=== PATIENT | female | born 1970 | race Hispanic/Latino ===

== ENCOUNTER 2016-12-20 22:02 | Inpatient (IN) | payer MEDICAID ==
[2016-12-20] MEDS ORDERED: Ammonia 2% Inhalant ONE (22:32)
[2016-12-20] MEDS ORDERED: Naloxone 0.4 mg/ml Inj (Adult) IVP STA (22:38)
[2016-12-20] MEDS ORDERED: Sodium Chloride 0.9% 1,000 ML IV STA (22:39)
[2016-12-20] MEDS ORDERED: Naloxone 0.4 mg/ml Inj (Adult) ONE (22:47)
--- NOTE | 2016-12-20 22:49 | ED PDOC ---
HPI: Altered Mental Status Time Seen by Provider: 12/20/16 22:30 Chief Complaint (Nursing): Altered Mental Status Chief Complaint (Provider): Drug abuse History Per: EMS Additional Complaint(s): Patient is a 46 year old female brought to the emergency department by EMS who reports that she was found unresponsive in her bedroom by her friends. States that she returned home from a constitution party, said she was tired and went to bed. Friends discovered her in her room unable to wake up. History limited because patient is under the influence. Past Medical History Reviewed: Nursing Documentation, Vital Signs, Unable To Obtain Vital Signs: Last Vital Signs Temp 97.6 F 12/20/16 22:05 Pulse 94 H 12/20/16 22:05 Resp 16 12/20/16 22:05 BP 110/65 12/20/16 22:05 Pulse Ox 92 L 12/20/16 22:05 - Medical History PMH: HTN (lifestyle modifications) - Surgical History Surgical History: Appendectomy - Family History Family History: States: Unknown Family Hx - Home Medications Home Medications: Ambulatory Orders Medication Instructions Recorded Alprazolam [Xanax] 0.5 mg PO DAILY PRN 12/25/15 Citalopram Hydrobromide [Celexa] 40 mg PO DAILY 12/25/15 buPROPion [Wellbutrin] 75 mg PO TID 12/25/15 Cephalexin [Keflex] 500 mg PO BID #0 capsule 12/27/15 oxyCODONE/Acetaminophen [Percocet 1 tab PO Q4 PRN #0 tab 12/27/15 5/325 mg Tab] Cephalexin [cephalexin] 500 mg PO TID #15 cap 01/08/16 - Allergies Allergies/Adverse Reactions: Allergies Allergy/AdvReac Type Severity Reaction Status Date / Time No Known Allergies Allergy Verified 01/08/16 16:17 Review of Systems Review Of Systems: ROS cannot be obtained secondary to pt's inabilty to answer questions. Physical Exam - Reviewed Nursing Documentation Reviewed: Yes Vital Signs Reviewed: Yes - Physical Exam Appears: Positive for: No Acute Distress (somnolent, snoring, arousable to deep sternal rub) Head Exam: Positive for: ATRAUMATIC, NORMAL INSPECTION, NORMOCEPHALIC Skin: Positive for: Normal Color, Warm, Dry Eye Exam: Positive for: Normal appearance, PERRL Neck: Positive for: Normal, Painless ROM, Supple Cardiovascular/Chest: Positive for: Regular Rate, Rhythm. Negative for: Murmur Respiratory: Positive for: Normal Breath Sounds. Negative for: Accessory Muscle Use, Respiratory Distress Gastrointestinal/Abdominal: Positive for: Normal Exam, Soft. Negative for: Tenderness Extremity: Positive for: Normal ROM. Negative for: Pedal Edema Neurologic/Psych: Positive for: Alert - Laboratory Results Result Diagrams: 12/20/16 22:43 12/20/16 22:43 - ECG O2 Sat by Pulse Oximetry: 92 (RA) Pulse Ox Interpretation: Normal Medical Decision Making Medical Decision Making: Time: 22:38 Initial impression: Drug abuse Initial plan: EKG Labs ED Urine Dipstick Chest X-Ray Narcan 0.4 mg IVP Normal Saline 1 L, 500 mls/hr ED Observation Reevaluation Scribe Attestation: Documented by Chrissy Sheets, acting as a scribe for Mathieu Pardo MD. Provider Scribe Attestation: All medical record entries made by the Scribe were at my direction and personally dictated by me. I have reviewed the chart and agree that the record accurately reflects my personal performance of the history, physical exam, medical decision making, and the department course for this patient. I have also personally directed, reviewed, and agree with the discharge instructions and disposition. ED OBSERVATION Date of observation admission: 12/20/16 Time of observation admission: 22:39 - Observation admission statement Patient is being placed in observation because:: of pending Chest X-Ray and EKG. - Goals of Observation Goals of observation are:: Resolution of symptoms. - Progress Note Progress Note: 12/20/16 22:39 Patient is asleep in ED. 12/21/16 00:12 Patient is asleep in ED. 12/21/16 01:43 Patient is asleep in ED. 12/21/16 03:10 Patient is asleep in ED. 12/21/16 03:30 Patient is waking up but is still difficulty to arouse. 12/21/16 03:46 Patient was able to express that she nearly had an entire bottle of Xanax in order to harm herself. Poison Control was contacted, and recommended Supportive Care. Ordered crisis evaluation. 12/21/16 05:10 Patient is waking up, difficulty to arouse. 12/21/16 07:00 Patient will be signed out to Dr. Fiona Alcala pending sobriety and crisis evaluation. Disposition - Clinical Impression Clinical Impression: Benzodiazepine overdose - Disposition Disposition: Transfer of Care Disposition Time: 07:00 Condition: FAIR Patient Signed Over To: Fiona Alcala Handoff Comments: pending sobriety, crisis eval
[2016-12-20 23:01] LABS: BASO # 0.1 K/uL (0.0-0.2); BASO % 0.6 % (0.0-2.0); EOS # 0.1 K/uL (0.0-0.7); EOS % 1.5 % (0.0-4.0); HEMATOCRIT 37.1 % (34.0-47.0); LYMPH # 2.1 K/uL (1.0-4.3); LYMPH % 25.6 % (20.0-40.0); MEAN CELL VOLUME 85.5 fl (81.0-99.0); MEAN CORPUSCULAR HEMOGLOBIN 26.9 pg (27.0-31.0); MEAN CORPUSCULAR HGB CONC 31.5 g/dL (33.0-37.0); MONO # 0.7 K/uL (0.0-0.8); MONO % 9.2 % (0.0-10.0); NEUT # 5.1 K/uL (1.8-7.0); NEUT % 63.1 % (50.0-75.0); RED CELL DISTRIBUTION WIDTH 19.9 % (11.5-14.5); WHITE BLOOD COUNT 8.1 K/uL (4.8-10.8)
[2016-12-20 23:02] LABS: ALCOHOL SERUM 105 mg/dl (0-10); BLOOD UREA NITROGEN 11 mg/dl (7-17); CALCIUM 8.5 mg/dL (8.4-10.2); CARBON DIOXIDE 22 mmol/L (22-30); CHLORIDE 106 mmol/L (98-107); GFR AFRICAN-AMERICAN > 60; GLUCOSE,RANDOM 94 mg/dL (65-105); POTASSIUM 4.2 MMOL/L (3.6-5.0); SODIUM 137 mmol/l (132-148)
--- NOTE | 2016-12-21 01:28 | CT ---
EXAM: CT Head Without Intravenous Contrast CLINICAL HISTORY: 46 years old, female; Signs and symptoms; Alteration of consciousness; Stupor; Patient HX: AMS. Possible overdose TECHNIQUE: Axial computed tomography images of the head/brain without intravenous contrast. All CT scans at this facility use one or more dose reduction techniques, viz.: automated exposure control; ma/kV adjustment per patient size (including targeted exams where dose is matched to indication; i.e. head); or iterative reconstruction technique. Coronal and sagittal reformatted images were created and reviewed. COMPARISON: No relevant prior studies available. FINDINGS: Limitations: Streak artifact - mild. Brain: No intracranial hemorrhage. No mass. Dilated perivascular space vs chronic lacunar infarct about RIGHT basal ganglia. No definite edema. Ventricles: No hydrocephalus. Bones/joints: No acute fracture. Soft tissues: Unremarkable. Sinuses: Mild mucosal mucosal thickening of ethmoid, RIGHT maxillary sinuses. Mastoid air cells: No mastoid effusion. Orbits: Unremarkable as visualized. IMPRESSION: 1. No definite acute intracranial abnormality. 2. Incidental/non-acute findings are described above.
--- NOTE | 2016-12-21 07:13 | ED PDOC ---
- Laboratory Results Result Diagrams: 12/22/16 07:00 12/22/16 07:00 - ECG O2 Sat by Pulse Oximetry: 92 (RA) Medical Decision Making Medical Decision Making: Receiving sign out: Patient signed out to me by Dr. Pardo at 0700 pending clinical sobriety and crisis evaluation. Scribe Attestation: Documented by Zehra Wadsworth acting as a scribe for Fiona Alcala MD. Provider Attestation: All medical record entries made by the Scribe were at my direction and personally dictated by me. I have reviewed the chart and agree that the record accurately reflects my personal performance of the history, physical exam, medical decision making, and the department course for this patient. I have also personally directed, reviewed, and agree with the discharge instructions and disposition. Disposition - Clinical Impression Clinical Impression: Benzodiazepine overdose, Depression - POA Present On Arrival: None - Disposition Disposition: Admitted as In-Patient Disposition Time: 12:01 Condition: STABLE Progress Note - Review of Symptoms Events since last encounter: Time: 1005 IV Fluids NS 1000ml/hr ordered Acetaminophen and salicylate levels ordered. Time: 1043 Salicylate and acetaminophen levels within normal limits. Patient pending clinical sobriety. Time: 1201 Patient medically cleared for admission under Dr. Cramer. Diagnosis: Depression
[2016-12-21] MEDS ORDERED: Sodium Chloride 0.9% 1,000 ML IV STA (10:06)
--- NOTE | 2016-12-21 10:12 | CARD ---
APPROVED REPORT EKG Measurement Heart [id number] <Conclusion> Sinus tachycardia Possible Left atrial enlargement Abnormal ECG
--- NOTE | 2016-12-21 11:49 | RAD ---
PROCEDURE: CHEST RADIOGRAPH, 1 VIEW HISTORY: overdose COMPARISON: None available. FINDINGS: LUNGS: Poor inspiration with low lung volumes, crowded bronchovascular markings and mild bibasilar atelectasis. The central pulmonary vasculature is also slightly congested in appearance possibly due to low lung volumes however the possibility of developing mild pulmonary edema not excluded. PLEURA: No pneumothorax or pleural fluid seen. CARDIOVASCULAR: Heart appears enlarged which may also be in part due to poor inspiration and low lung volumes. . OSSEOUS STRUCTURES: Mild dextroscoliosis centered in the lower thoracic region VISUALIZED UPPER ABDOMEN: Note made of multiple metallic clips left parasagittal upper abdomen. OTHER FINDINGS: None. IMPRESSION: Poor inspiration with low lung volumes, crowded bronchovascular markings and mild bibasilar atelectasis. The central pulmonary vasculature is also slightly congested in appearance possibly due to low lung volumes however the possibility of developing mild pulmonary edema not excluded.
[2016-12-21] MEDS ORDERED: DiphenhydrAMINE 50 mg/ml Inj IM PRN (15:31)
[2016-12-21] MEDS ORDERED: Alum-Mag Hydrox-Simethicone Susp (30 mL) PO PRN (15:35)
[2016-12-21] MEDS ORDERED: Magnesium Hydroxide Susp 30 ml UD PO PRN (15:35)
[2016-12-22 07:51] LABS: BASO % 0.5 % (0.0-2.0); EOS # 0.1 K/uL (0.0-0.7); EOS % 2.5 % (0.0-4.0); LYMPH # 1.7 K/uL (1.0-4.3); LYMPH % 35.5 % (20.0-40.0); MEAN CELL VOLUME 84.4 fl (81.0-99.0); MEAN CORPUSCULAR HEMOGLOBIN 27.5 pg (27.0-31.0); MEAN CORPUSCULAR HGB CONC 32.6 g/dL (33.0-37.0); MEAN PLATELET VOLUME 8.2 fl (7.2-11.7); MONO # 0.3 K/uL (0.0-0.8); MONO % 6.6 % (0.0-10.0); NEUT # 2.6 K/uL (1.8-7.0); NEUT % 54.9 % (50.0-75.0); NRBC % 0.1 % (0.0-0.0); WHITE BLOOD COUNT 4.8 K/uL (4.8-10.8)
--- NOTE | 2016-12-22 07:57 | CP.PCM.HP ---
History of Present Illness - History of Present Illness History of Present Illness: admitted for taking fullbottle of xanax after mother was in hospital. states was trying to kill herself. no a/v hallucination. sleepy at present. denies other compliants. Present on Admission - Present on Admission Any Indicators Present on Admission: No Review of Systems - Psychiatric Psychiatric: As Per HPI, Depression Past Patient History - Past Medical History & Family History Past Medical History?: Yes - Past Social History Smoking Status: Never Smoked - CARDIAC Hx Cardiac Disorders: No - PULMONARY Hx Respiratory Disorders: No - NEUROLOGICAL Hx Neurological Disorder: No - HEENT Hx HEENT Problems: No - MUSCULOSKELETAL/RHEUMATOLOGICAL Hx Falls: No - GASTROINTESTINAL Hx Bowel Surgery: Yes (gastric sleeve) Other/Comment: small bowel obstruction - PSYCHIATRIC Hx Substance Use: No - SURGICAL HISTORY Hx Appendectomy: Yes - ANESTHESIA Hx Anesthesia: Yes Hx Anesthesia Reactions: No Meds Allergies/Adverse Reactions: Allergies Allergy/AdvReac Type Severity Reaction Status Date / Time No Known Allergies Allergy Verified 12/21/16 12:53 Physical Exam - Constitutional Appears: Well, Non-toxic, No Acute Distress - Head Exam Head Exam: ATRAUMATIC, NORMAL INSPECTION, NORMOCEPHALIC - Eye Exam Eye Exam: EOMI, Normal appearance, PERRL Pupil Exam: NORMAL ACCOMODATION, PERRL - ENT Exam ENT Exam: Mucous Membranes Moist, Normal Exam - Neck Exam Neck exam: Positive for: Normal Inspection - Respiratory Exam Respiratory Exam: Clear to Auscultation Bilateral, NORMAL BREATHING PATTERN - Cardiovascular Exam Cardiovascular Exam: REGULAR RHYTHM, RRR, +S1, +S2 - GI/Abdominal Exam GI & Abdominal Exam: Normal Bowel Sounds, Soft. absent: Tenderness - Extremities Exam Extremities exam: Positive for: full ROM, normal capillary refill, normal inspection, pedal pulses present - Back Exam Back exam: NORMAL INSPECTION - Neurological Exam Neurological exam: Alert, CN II-XII Intact, Normal Gait, Oriented x3, Reflexes Normal - Psychiatric Exam Psychiatric exam: Normal Affect, Normal Mood - Skin Skin Exam: Dry, Intact, Normal Color, Warm Results - Vital Signs Recent Vital Signs: Last Vital Signs Temp 97.5 F L 12/22/16 05:48 Pulse 73 12/22/16 05:48 Resp 19 12/22/16 05:48 BP 127/76 12/22/16 05:48 Pulse Ox 100 12/21/16 12:38 - Labs Result Diagrams: 12/20/16 22:43 12/20/16 22:43 Assessment & Plan (1) DVT prophylaxis Assessment and Plan: ambulation Status: Acute (2) Benzodiazepine overdose Assessment and Plan: med cleared by er still sleepy psych meds ineterventions, therapies for MDD Status: Acute Decision To Admit - Pt Status Changed To: Hospital Disposition Of: Inpatient - Admit Certification Admit to Inpatient:: After my assessment, the patient will require hospitalization for at least two midnights. This is because of the severity of symptoms shown, intensity of services needed, and/or the medical risk in this patient being treated as an outpatient. - . Bed Request Type: Adult Psychiatry Admitting Physician: Katelynn Mason
[2016-12-22 08:12] LABS: CHLORIDE 108 mmol/L (98-107); GLUCOSE,RANDOM 79 mg/dL (65-105); POTASSIUM 3.9 MMOL/L (3.6-5.0); SODIUM 143 mmol/l (132-148); TOTAL PROTEIN 6.2 G/DL (6.3-8.2)
[2016-12-22 08:13] LABS: ALB/GLOB RATIO 1.2 (1.0-2.1); ALKALINE PHOSPHATASE 55 U/L (38-126); ALT/SGPT 34 U/L (9-52); AST/SGOT 22 U/L (14-36); BILIRUBIN,TOTAL 0.5 mg/dl (0.2-1.3); BLOOD UREA NITROGEN 10 mg/dl (7-17); CARBON DIOXIDE 28 mmol/L (22-30); GFR AFRICAN-AMERICAN > 60
[2016-12-22 08:32] LABS: T4 5.85 ug/dl (5.5-11.0)
[2016-12-22 08:46] LABS: THYROID STIMULATING HORMONE 2.28 mIU/ML (0.46-4.68)
--- NOTE | 2016-12-22 09:01 | PCM.PSYCH ---
Initial Psychiatric Evaluation - Initial Psychiatric Evaluation Type of Admission: Voluntary Legal Status: Capacity Chief Complaint (in patient's own words): "I overdosed on Xanax" Patient's Reaction to Hospitalization: HPI: 46 yo female BIB ambulance s/p OD of 90 tablets of Xanax 0.5 mg, which acutely intoxicated on ETOH (6 beers). Patient reports that it was a suicide attempt and reports social stressors of unemployment and a sick mother. In the ER she reported AH, but currently denies. +sleep/appetite disturbances. She reports remorse for her suicide attempt and denies current ideation to harm herself. No AH/VH/SI/HI. Collateral from ER: PTs sister Gissell [phone] reports that pt came home from a constitution party last night. She was out for about 2-3 hours. Upon her return, she stated that she wanted to go to bed. About 15-20 minutes later the dog started barking. The bark was unusual so she went in to check on pt and found her unresponsive on the bed. She attempted to wake her and even threw water on her but was unable to rouse her. Sister then contacted the Ambulance who brought her to his ED. Their mom is in the hospital and they are currently moving so it has been very stressful. She is unable to find the bottle of Xanax that pt took. Pt has been taking Xanax for over a year. Pt is also on Citalopram 40mg and Bupropion 75mg (3x daily). Pts medical doctor is at [facility], Dr. Roman. Pt has made 2 attempts to kill herself in the past. The 1st time was 15 yrs ago and the next 10yrs ago. Pt has used the same method of overdosing on medication. PPHx: Pt was admitted twice before to [facility] many years ago for suicide attempt. Pt is currently taking Xanax, Celexa and Wellbutin. Pt has made 2 attempts to kill herself in the past. The 1st time was 15 yrs ago and the next 10yrs ago. Pt has used the same method of overdosing on medication. PMHx: HTN PSHx: Appendectomy SHx: Lives in apt w/ mom and sister. U[employer]ployed Finished 12th grade. Denies drug use. Reports she drinks once weekly. FHx: Denies family hx of mental illness. Current Medications: Active Medications Generic Name Dose Route Start Last Admin Trade Name Freq PRN Reason Stop Dose Admin Acetaminophen 650 mg 12/21/16 15:35 Tylenol 325mg Tab PO Q4 PRN Pain, moderate (4-7) Al Hydrox/Mg Hydrox/Simethicone 30 ml 12/21/16 15:35 Maalox Plus 30 Ml PO Q4 PRN Dyspepsia Bupropion HCl 100 mg 12/22/16 09:00 Wellbutrin PO TID [place] Citalopram Hydrobromide 40 mg 12/22/16 09:00 Celexa PO DAILY [place] Diphenhydramine HCl 50 mg 12/21/16 15:30 Benadryl PO Q6 PRN eps Diphenhydramine HCl 50 mg 12/21/16 15:31 Benadryl IM Q6 PRN eps Haloperidol 5 mg 12/21/16 15:35 Haldol PO Q4 PRN Agitation Haloperidol Lactate 5 mg 12/21/16 15:35 Haldol IM Q4 PRN Agitation, Unable to Take PO Lorazepam 0.5 mg 12/21/16 15:25 Ativan PO HS PRN Insomnia Lorazepam 0.5 mg 12/21/16 15:28 Ativan IM Q6 PRN Agitation Lorazepam 1 mg 12/22/16 09:00 Ativan PO TID [place] Magnesium Hydroxide 30 ml 12/21/16 15:35 Milk Of Magnesia PO HS PRN Constipation Past Psychiatric History - Past Psychiatric History Previous Treatment History: Inpatient Pertinent Medical Hx (Current Medical&Sleep Prob, Allergies): Allergies Allergy/AdvReac Type Severity Reaction Status Date / Time No Known Allergies Allergy Verified 12/21/16 12:53 Alprazolam [Xanax] 0.5 mg PO DAILY PRN 12/25/15 Citalopram Hydrobromide [Celexa] 40 mg PO DAILY 12/25/15 buPROPion [Wellbutrin] 75 mg PO TID 12/25/15 Review of Systems - Psychiatric Psychiatric: As Per HPI, Abnormal Sleep Pattern, Anhedonia, Anxiety, Auditory Hallucinations, Change in Appetite, Depression, Difficulty Concentrating, Hallucinations, Hopelessness, Mood Swings, Suicidal Ideation Mental Status Examination - Personal Presentation Personal Presentation: Looks stated age - Affect Affect: Constricted (Tearful at times) - Motor Activity Motor Activity: Calm - Reliability in Providing Information Reliability in Providing Information: Good - Speech Speech: Organized - Mood Mood: Depressed - Formal Thought Process Formal Thought Process: No Impairment - Hallucinations/Delusions Additional comments: NO AH/VH - Obsessions/Compulsions Obsessions: No Compulsions: No - Cognitive Functions Orientation: Person, Place, Situation, Time Sensorium: Alert Attention/Concentration: Attentive Estimate of Intelligence: Average Judgement: Intact, as evidence by: Insight regarding need for hospitalization Memory: Recent intact, as evidence by: Ability to recall events of the day, Remote intact, as evidenced by: Abilit to recall sig. life events, Remote intact , as evidenced by: Ability to recall historical events - Risk Risk: Suicidal, Diminished functioning - Strength & Assets Inventory Strength & Assets Inventory: Family support, Cooperative DSM 5 DX - DSM 5 DSM 5 Diagnosis: Major Depressive Disorder; Benzodiazepine Overdose - Recommended/Plan of Treatment Treatment Recommendations and Plan of Treatment: Major Depressive Disorder; Benzodiazepine Overdose -Admit to psychiatry unit -Increase Wellbutrin to 100 mg PO TID -Continue Celexa 40 mg PO Daily -Ativan for benzodiazepine w/drawal -Individual and group therapy -Disposition planning Projected ELOS: 5-7 days Discharge Plan and Discharge Criteria: Discharge when psychiatrically stable
[2016-12-22 09:02] LABS: CHOLESTEROL 144 mg/dL (0-199)
--- NOTE | 2016-12-22 11:15 | PCM.BM ---
<Lena De Luna - Last Filed: 12/22/16 11:17> Treatment Plan Problems - Problems identified on initial assessmt Hopelessness.helplessness Date Initiated: 12/22/16 Time Initiated: 11:14 Assessment reference: NA Status: Active Medication nonadherence Date Initiated: 12/22/16 Time Initiated: 11:15 Assessment reference: NA Status: Active Priority: 2 Treatment assets and liabiliti Patient Assests: cooperative, motivated, ADL independent, good support system, negotiates basic needs, cognitively intact Patient Liabilities: financial problems, medical problems - Milieu Protocol Maintain good personal hygiene: every shift Encourage regular showers, every shift Remind patient to perform daily oral care, every shift Assist patient to perform ADL's Conduct patient checks and document Observation sheet: Q15 minutes Maintain personal safety: every shift Educate patient to report safety concerns to staff, every shift Monitor environment for contraband/sharps Medication safety: Monitor for expected outcome, potential side effects: every shift, Assess barriers to learning: every shift, Assess readiness for medication education: every shift Milieu Narrative: Major Depressive Disorder; Benzodiazepine Overdose -Admit to psychiatry unit -Increase Wellbutrin to 100 mg PO TID -Continue Celexa 40 mg PO Daily -Ativan for benzodiazepine w/drawal -Individual and group therapy -Disposition planning Discharge/Continuing Care - Treatment Team Participation Patient/Family/SO Statement: Major Depressive Disorder; Benzodiazepine Overdose -Admit to psychiatry unit -Increase Wellbutrin to 100 mg PO TID -Continue Celexa 40 mg PO Daily -Ativan for benzodiazepine w/drawal -Individual and group therapy -Disposition planning <Bonita Jose - Last Filed: 12/24/16 11:14> Family Contact Family contact: Patient agrees to contact, Telephone contact initiated by staff , Family contacted unit to give information Family contact name: Gissell Craig Family contacted how many times per week?: 1 Family contact comment: [phone] Discharge/Continuing Care - Education Needs Education Needs: Family Medication, Family Diagnosis/Disease Process, Family Community resources, Family Aftercare Safety Plan, Patient Medication, Patient Diagnosis/Disease Process, Patient Coping Skills, Patient Community resources, Patient Aftercare Safety Plan - Discharge Discharge Criteria: Tolerates medication w/o severe side effects, Free of Suicidal thoughts, Normal sleep pattern, Ability to care for self, Reduction of target symptoms Discharge to:: Home, With Family - Additional Comments 12/24/16 11:11 OPD appointment with [facility] and pt is agreeable. Pt reported no side affects to medications. - Treatment Team Participation Discussed with Family/SO: Yes (Pt's family will be contacted and informed of treatment tean recommendation) Was Patient/Family/SO present at Treatment Team Meeting: Yes
[2016-12-22 12:12] VITALS: O2SAT 92
--- NOTE | 2016-12-23 11:00 | PCM.PYCHPN ---
Psychiatric Progress Note - Psychiatric Progress Note Patient seen today, length of contact: Patient evaluated, case discussed with team, chart reviewed, 35 min Patient Chief Complaint: "I'm okay" Problems Identified/Issues Discussed: Patient reports that her mood is improving. She denies ideation to harm herself. She denies benzo w/drawal symptoms. No psychosis. She was observed lying calmly in bed. Patient encouraged to get out of the bed, shower and participate in groups. Medication Change: Yes (Taper Ativan) Medical Record Reviewed: Yes Mental Status Examination - Cognitive Function Orientation: Person, Place, Situation, Time Memory: Intact Attention: WNL Concentration: WNL Association: WNL Fund of Knowledge: WNL - Mood Mood: Depressed - Affect Affect: Constricted (Tearful at times) - Speech Speech: Appropriate - Formal Thought Process Formal Thought Process: No Impairment Psychotic Thoughts and Behaviors: No AH/VH/paranoia/delusions - Suicidal Ideation Suicidal Ideation: No - Homicidal Ideation Homicidal Ideation: No Goal/Treatment Plan - Goal/Treatment Plan Need for Continued Stay: Remain at risks for inpatient hospitalization, Severe depression anxiety Progress Toward Problem(s) and Goals/Treatment Plan: Major Depressive Disorder; Benzodiazepine Overdose -Continue Wellbutrin 100 mg PO TID -Continue Celexa 40 mg PO Daily -Taper Ativan for benzodiazepine w/drawal -Individual and group therapy -Disposition planning Estimated Date of D/C: 12/26/16
[2016-12-23] MEDS ORDERED: Pneumococcal 23-Valent Vaccine IM ONE (11:24)
--- NOTE | 2016-12-24 09:21 | PCM.PYCHPN ---
Psychiatric Progress Note - Psychiatric Progress Note Patient seen today, length of contact: Patient evaluated, case discussed with team, chart reviewed, 35 min Patient Chief Complaint: "I'm okay" Problems Identified/Issues Discussed: Patient continues to report that her mood is improving. She denies ideation to harm herself. She denies benzo w/drawal symptoms. Ativan is currently being tapered. No psychosis. Patient encouraged to get out of the bed, shower and participate in groups. Medication Change: Yes (Taper Ativan) Medical Record Reviewed: Yes Mental Status Examination - Cognitive Function Orientation: Person, Place, Situation, Time Memory: Intact Attention: WNL Concentration: WNL Association: WN Fund of Knowledge: [facility] Decription of patient's judgement and insights: Fair I/J - Mood Mood: Depressed - Affect Affect: Constricted (Tearful at times) - Speech Speech: Appropriate - Formal Thought Process Formal Thought Process: No Impairment Psychotic Thoughts and Behaviors: No AH/VH/paranoia/delusions - Suicidal Ideation Suicidal Ideation: No - Homicidal Ideation Homicidal Ideation: No Goal/Treatment Plan - Goal/Treatment Plan Need for Continued Stay: Remain at risks for inpatient hospitalization, Severe depression anxiety Progress Toward Problem(s) and Goals/Treatment Plan: Major Depressive Disorder; Benzodiazepine Overdose; patient needs continued hospitalization for treatment, safety and stabilization. -Continue Wellbutrin 100 mg PO TID -Continue Celexa 40 mg PO Daily -Taper Ativan for benzodiazepine w/drawal -Individual and group therapy -Disposition planning Estimated Date of D/C: 12/26/16 - Smoking Cessation Smoking Cessation Initiated: No Reason for not providing: Not indicated
--- NOTE | 2016-12-25 09:58 | PCM.PYCHPN ---
Psychiatric Progress Note - Psychiatric Progress Note Patient seen today, length of contact: Patient evaluated, case discussed with team, chart reviewed, 35 min Patient Chief Complaint: "I'm okay" Problems Identified/Issues Discussed: Patient continues to report that her mood is improving. No ideation to harm herself. She denies benzo w/drawal symptoms. Ativan will be stopped today. No psychosis. Patient participating appropriately in groups. Medication Change: Yes (Stop Ativan) Medical Record Reviewed: Yes Mental Status Examination - Cognitive Function Orientation: Person, Place, Situation, Time Memory: Intact Attention: WNL Concentration: WNL Association: [facility] Fund of Knowledge: [facility] Decription of patient's judgement and insights: Fair I/J - Mood Mood: Neutral - Affect Affect: Constricted (Tearful at times) - Speech Speech: Appropriate - Formal Thought Process Formal Thought Process: No Impairment Psychotic Thoughts and Behaviors: No AH/VH/paranoia/delusions - Suicidal Ideation Suicidal Ideation: No - Homicidal Ideation Homicidal Ideation: No Goal/Treatment Plan - Goal/Treatment Plan Need for Continued Stay: Remain at risks for inpatient hospitalization Progress Toward Problem(s) and Goals/Treatment Plan: Major Depressive Disorder; Benzodiazepine Overdose; patient continues to improve clinically, no current ideation to harm herself, will likely discharge tomorrow if she continues to improve. -Continue Wellbutrin 100 mg PO TID -Continue Celexa 40 mg PO Daily -Stop Ativan, no signs/symptoms of benzo w/drawal -Individual and group therapy -Disposition planning Estimated Date of D/C: 12/26/16
[2016-12-26 06:08] VITALS: BP 105/57; PULSE 60; RESP 18; TEMP 97.5
--- NOTE | 2016-12-26 08:11 | PCM.PYCHDC ---
Mental Status Examination - Mental Status Examination Orientation: Person, Place, Situation, Time Memory: Intact Mood: Neutral Affect: Broad Speech: Appropriate Attention: WNL Concentration: WNL Association: WNL Fund of Knowledge: WNL Formal Thought Process: No Impairment Description of patient's judgement and insight: Fair I/J Psychotic Thoughts and Behaviors: No AH/VH/paranoia/delusions Suicidal Ideation: No Current Homicidal Ideation?: No Discharge Summary - Discharge Note Reason for Hospitalization: HPI: 46 yo female BIB ambulance s/p OD of 90 tablets of Xanax 0.5 mg, which acutely intoxicated on ETOH (6 beers). Patient reports that it was a suicide attempt and reports social stressors of unemployment and a sick mother. In the ER she reported AH, but currently denies. +sleep/appetite disturbances. She reports remorse for her suicide attempt and denies current ideation to harm herself. No AH/VH/SI/HI. Collateral from ER: PTs sister Gissell [phone] reports that pt came home from a republic[place] last night. She was out for about 2-3 hours. Upon her return, she stated that she wanted to go to bed. About 15-20 minutes later the dog started barking. The bark was unusual so she went in to check on pt and found her unresponsive on the bed. She attempted to wake her and even threw water on her but was unable to rouse her. Sister then contacted the Ambulance who brought her to his ED. Their mom is in the hospital and they are currently moving so it has been very stressful. She is unable to find the bottle of Xanax that pt took. Pt has been taking Xanax for over a year. Pt is also on Citalopram 40mg and Bupropion 75mg (3x daily). Pts medical doctor is at [facility], Dr. Roman. Pt has made 2 attempts to kill herself in the past. The 1st time was 15 yrs ago and the next 10yrs ago. Pt has used the same method of overdosing on medication. PPHx: Pt was admitted twice before to [facility] many years ago for suicide attempt. Pt is currently taking Xanax, Celexa and Wellbutin. Pt has made 2 attempts to kill herself in the past. The 1st time was 15 yrs ago and the next 10yrs ago. Pt has used the same method of overdosing on medication. PMHx: HTN PSHx: Appendectomy SHx: Lives in apt w/ mom and sister. Umemployed Finished 12th grade. Denies drug use. Reports she drinks once weekly. FHx: Denies family hx of mental illness. Consultations:: List each consultation separately and include: 1. Reason for request. 2. Findings. 3. Follow-up Consultations: Medicine consult Summary of Hospital Course include:: 1. Description of specific treatment plan utilized for patients during their course of treatmen. 2. Summarize the time- course for resolution of acute symptoms and/or regressed behaviors. 3. Describe issues identified and worked on during hospitalization. 4. Describe medication utilized. 5. Describe medical problems identified and treated. 6. Reassessment of suicide risk Summary of Hospital Course: Patient was admitted to the psychiatry unit. Individual and group therapy were provided. Patient was stabilized on Celexa 40 mg PO Daily, Wellbutrin 100 mg PO TID and Ativan 0.5 mg PO HS PRN. Patient no longer expresses suicidal ideation/plan/intent. She is psychiatrically stable for discharge. - Final Diagnosis (DSM 5) Condition upon Discharge: STABLE DSM 5: Major Depressive Disorder, Anxiety Disposition: HOME/ ROUTINE Follow-up Treatment Plan: Major Depressive Disorder; Benzodiazepine Overdose; patient is psychiatrically stable for discharge. -Continue Wellbutrin 100 mg PO TID -Continue Celexa 40 mg PO Daily -Ativan 0.5 mg PO HS PRN -Individual and group therapy -Disposition planning Prescriptions/Medication Reconciliation: buPROPion [Wellbutrin] 100 mg PO TID #90 tab Citalopram Hydrobromide [Celexa] 40 mg PO DAILY #60 LORazepam [Ativan] 0.5 mg PO HS PRN #7 tab PRN Reason: Insomnia - Smoking Cessation Smoking Cessation Medication prescribed: No Reason for not providing: Not indicated - Antipsychotic Medications Pt discharged on 2 or more routine antipsychotic medications: No
== END 2016-12-26 10:00 | disposition home or self-care (01) | DRG 426 ==
LOC: H.ER 22:02 → H.EROBSV 22:39 → OBSVTOIN 12-21 12:01 → H.ERHOLD 12-21 12:01 → H.STEP 12-21 14:00
PROVIDERS: ADMIT Psychiatry & Neurology Psychiatry; ATTEND Psychiatry & Neurology Psychiatry
PROC: 3E0234Z Introduction of Serum, Toxoid and Vaccine into Muscle, Percutaneous Approach (ICD-10-PCS; principal; 2016-12-23)
DX: F32.9 Major depressive disorder, single episode, unspecified (principal); I10 Essential (primary) hypertension; T42.4X2A Poisoning by benzodiazepines, intentional self-harm, initial encounter; Z23 Encounter for immunization; Y92.009 Unspecified place in unspecified non-institutional (private) residence as the place of occurrence of the external cause; F10.129 Alcohol abuse with intoxication, unspecified; Y90.5 Blood alcohol level of 100-119 mg/100 ml; F41.9 Anxiety disorder, unspecified

== ENCOUNTER 2017-10-12 15:54 | Emergency (ER) | payer MEDICAID ==
[2017-10-12 16:09] VITALS: BP 134/83; PULSE 79; RESP 16; TEMP 98.3; O2SAT 100
--- NOTE | 2017-10-12 17:19 | RAD ---
PROCEDURE: Right Wrist Radiographs. HISTORY: R/O FX COMPARISON: None. FINDINGS: BONES: No acute fracture. JOINTS: Unremarkable. SOFT TISSUES: Normal. OTHER FINDINGS: None. IMPRESSION: No demonstrated fracture or dislocation.
[2017-10-12] MEDS ORDERED: Oxycodone/Acetaminophen 5/325 mg Tab ONE (17:22)
--- NOTE | 2017-10-12 17:29 | ED PDOC ---
Upper Extremity Pain/Injury Time Seen by Provider: 10/12/17 16:31 Chief Complaint (Nursing): Finger,Hand,&Wrist Chief Complaint (Provider): Hand Injury History Per: Patient History/Exam Limitations: no limitations Onset/Duration Of Symptoms: Mins Current Symptoms Are (Timing): Still Present Quality: "Pain" Additional Complaint(s): 47 y/o female presents to the ED s/p right hand injury. Patient reports she was walking home from work when she tripped and fell. She states when she fell she bore a lot of weight on both her hands. Patient is complaining of severe pain to right hand and bruising to her left hand. She states she cannot close her right hand into a fist because it is too painful. PMD: none provided Past Medical History Reviewed: Historical Data, Nursing Documentation, Vital Signs Vital Signs: Last Vital Signs Temp 98.3 F 10/12/17 16:06 Pulse 79 10/12/17 16:06 Resp 16 10/12/17 16:06 BP 134/83 10/12/17 16:06 Pulse Ox 100 10/12/17 16:06 - Medical History PMH: Anxiety, Depression, HTN (lifestyle modifications) - Surgical History Surgical History: Appendectomy - Family History Family History: States: Unknown Family Hx - Home Medications Home Medications: Ambulatory Orders Medication Instructions Recorded Citalopram Hydrobromide [Celexa] 40 mg PO DAILY #60 12/25/16 LORazepam [Ativan] 0.5 mg PO HS PRN #7 tab 12/25/16 buPROPion [Wellbutrin] 100 mg PO TID #90 tab 12/25/16 oxyCODONE/Acetaminophen [Percocet 1 ea PO QID #10 tab 10/12/17 5/325 mg Tab] - Allergies Allergies/Adverse Reactions: Allergies Allergy/AdvReac Type Severity Reaction Status Date / Time No Known Allergies Allergy Verified 12/21/16 12:53 Review of Systems ROS Statement: Except As Marked, All Systems Reviewed And Found Negative Musculoskeletal: Positive for: Hand Pain (right hand) Physical Exam - Reviewed Nursing Documentation Reviewed: Yes Vital Signs Reviewed: Yes - Physical Exam Appears: Positive for: Non-toxic, No Acute Distress Head Exam: Positive for: ATRAUMATIC, NORMOCEPHALIC Skin: Positive for: Normal Color, Warm, Dry Eye Exam: Positive for: EOMI, Normal appearance, PERRL Extremity: Positive for: Normal ROM (full passive ROM with limited active ROM), Tenderness (to the scaphoid without snuff box tenderness), Capillary Refill ( less than 2 seconds on all distal extremities) Neurologic/Psych: Positive for: Alert, Oriented (x3) - ECG O2 Sat by Pulse Oximetry: 100 (RA) Pulse Ox Interpretation: Normal Medical Decision Making Medical Decision Making: Time: 16:06 Impression: r/o fracture over contusion Plan: * Right hand and right wrist x-ray * Refer to hand surgeon * Splint * Pain medication Wrist x-ray results... FINDINGS: BONES: No acute fracture. JOINTS: Unremarkable. SOFT TISSUES: Normal. OTHER FINDINGS: None. IMPRESSION: No demonstrated fracture or dislocation. Right hand x-ray results... FINDINGS: BONES: No acute fracture. JOINTS: Unremarkable. SOFT TISSUES: Normal. OTHER FINDINGS: None. IMPRESSION: No demonstrated fracture or dislocation. Scribe Attestation: Documented by Norris Norman acting as a scribe Yasmani Reyes PA-C. MD Scribe Attestation: All medical record entries made by the Scribe were at my direction and personally dictated by me. I have reviewed the chart and agree that the record accurately reflects my personal performance of the history, physical exam, medical decision making, and the department course for this patient. I have also personally directed, reviewed, and agree with the discharge instructions and disposition. Disposition - Clinical Impression Clinical Impression: Contusion, hand - Patient ED Disposition Is Patient to be Admitted: No Doctor Will See Patient In The: Office Counseled Patient/Family Regarding: Diagnosis, Need For Followup, Rx Given - Disposition Referrals: Joya Delaney MD [Staff Provider] - Disposition: Routine/Home Disposition Time: 17:46 Condition: STABLE Prescriptions: oxyCODONE/Acetaminophen [Percocet 5/325 mg Tab] 1 ea PO QID #10 tab Instructions: Contusion (DC), Hand Pain, Making Everyday Tasks Easier With Pain Forms: [facility] (Romanian), [facility] ED School/Work Excuse
[2017-10-12] MEDS ORDERED: Oxycodone/Acetaminophen 5/325 mg Tab PO STA (17:44)
== END 2017-10-12 17:52 | disposition home or self-care (01) ==
LOC: H.ER 15:54
DX: S60.221A Contusion of right hand, initial encounter (principal); W19.XXXA Unspecified fall, initial encounter; Y92.89 Other specified places as the place of occurrence of the external cause; F32.9 Major depressive disorder, single episode, unspecified; F41.9 Anxiety disorder, unspecified; I10 Essential (primary) hypertension

== ENCOUNTER 2018-04-22 15:08 | Emergency (ER) | payer MEDICAID ==
[2018-04-22 15:23] VITALS: RESP 18; TEMP 98.4; O2SAT 100
--- NOTE | 2018-04-22 15:41 | ED PDOC ---
HPI: General Adult Time Seen by Provider: 04/22/18 15:40 Chief Complaint (Nursing): Dizziness/Lightheaded Chief Complaint (Provider): dizziness, ear pain History Per: Patient Additional Complaint(s): 47-year-old female with history of vertigo presents with bilateral ear pain and dizziness that started last night. Patient states she feels fullness in both ears. She states when she most her head rapidly any direction she feels worsening dizziness and vertigo. Patient is nauseous and vomited 2 yesterday. Patient has been able to tolerate liquids and solids since emesis. She has had episodes of vertigo in the past but not for over 2 years. Patient denies any headache, chest pain, shortness of breath or dyspnea on exertion, no fever or chills, no vision changes. PMD: [place] Past Medical History Reviewed: Historical Data, Nursing Documentation, Vital Signs Vital Signs: Last Vital Signs Temp 98.4 F 04/22/18 15:20 Pulse 69 04/22/18 15:20 Resp 18 04/22/18 15:20 BP 125/89 04/22/18 15:20 Pulse Ox 100 04/22/18 15:20 - Medical History PMH: Anxiety, Depression, HTN (lifestyle modifications) Other PMH: Vertigo - Surgical History Surgical History: Appendectomy, Hernia Repair - Family History Family History: States: No Known Family Hx - Living Arrangements Living Arrangements: With Family - Social History Current smoker - smoking cessation education provided: No Alcohol: Occasional Drugs: Denies - Home Medications Home Medications: Ambulatory Orders Medication Instructions Recorded Citalopram Hydrobromide [Celexa] 40 mg PO DAILY #60 12/25/16 LORazepam [Ativan] 0.5 mg PO HS PRN #7 tab 12/25/16 buPROPion [Wellbutrin] 100 mg PO TID #90 tab 12/25/16 oxyCODONE/Acetaminophen [Percocet 1 ea PO QID #10 tab 10/12/17 5/325 mg Tab] Amoxicillin/Clavulanate [Augmentin 1 tab PO BID #14 tab 04/22/18 875 MG-125 MG] Meclizine [Meclizine*] 25 mg PO Q6 PRN #40 tab 04/22/18 Ondansetron ODT [Zofran ODT] 4 mg PO Q8H PRN #20 odt 04/22/18 predniSONE [Prednisone] 20 mg PO BID #10 tab 04/22/18 - Allergies Allergies/Adverse Reactions: Allergies Allergy/AdvReac Type Severity Reaction Status Date / Time No Known Allergies Allergy Verified 12/21/16 12:53 Review of Systems ROS Statement: Except As Marked, All Systems Reviewed And Found Negative Constitutional: Negative for: Fever, Chills ENT: Positive for: Ear Pain (bilateral). Negative for: Throat Pain Cardiovascular: Negative for: Chest Pain Respiratory: Negative for: Cough, Shortness of Breath Gastrointestinal: Positive for: Nausea, Vomiting. Negative for: Abdominal Pain, Diarrhea, Constipation Neurological: Positive for: Dizziness. Negative for: Headache Physical Exam - Reviewed Nursing Documentation Reviewed: Yes Vital Signs Reviewed: Yes - Physical Exam Appears: Positive for: Well, Non-toxic, No Acute Distress Skin: Positive for: Normal Color. Negative for: Rash Eye Exam: Positive for: Normal appearance ENT: Positive for: TM Is/Are (bulging tympanic membranes bilaterally with obscured landmarks and erythema bilaterally, canals are clear bilaterally, no perforation or rupture bilaterally), Nasal Congestion. Negative for: Pharyngeal Erythema, Tonsillar Exudate, Tonsillar Swelling Neck: Positive for: Normal Cardiovascular/Chest: Positive for: Regular Rate, Rhythm Respiratory: Positive for: Normal Breath Sounds. 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 Negative for: Aphasia, Facial Droop - Laboratory Results Result Diagrams: 04/22/18 18:15 04/22/18 18:15 - ECG O2 Sat by Pulse Oximetry: 100 Pulse Ox Interpretation: Normal Medical Decision Making Medical Decision Makin47 year old female with vertigo and ear pain Plan: CBC CMP IVF IV zofran PO meclizine IVF IV toradol Patient states she feels much better after meds given in ED. Patient aware of all diagnostic testing results, all questions answered. Hemoglobin is noted to be 9.4. Patient has history of anemia and has had transfusions in the past. She states her hemoglobin has gone well below 9.4 in the past. Patient was given prescriptions for prednisone, Augmentin, meclizine and Zofran. Advised fluids, rest and PMD follow-up in 2-3 days. Disposition - Clinical Impression Clinical Impression: Bilateral otitis media, Vertigo - Patient ED Disposition Is Patient to be Admitted: No Counseled Patient/Family Regarding: Studies Performed, Diagnosis, Need For Followup, Rx Given - Disposition Referrals: Isa Steven MD [Family Provider] - Disposition: Routine/Home Disposition Time: 18:51 Condition: IMPROVED Additional Instructions: Take prescription meds as directed. Drink plenty of fluids and get plenty of rest. Follow-up with primary doctor in 2-3 days. Prescriptions: Amoxicillin/Clavulanate [Augmentin 875 MG-125 MG] 1 tab PO BID #14 tab Meclizine [Meclizine*] 25 mg PO Q6 PRN #40 tab PRN Reason: Dizziness Ondansetron ODT [Zofran ODT] 4 mg PO Q8H PRN #20 odt PRN Reason: Nausea/Vomiting predniSONE [Prednisone] 20 mg PO BID #10 tab Instructions: Vertigo (a Type of Dizziness), Ear Infections (Otitis Media) (DC) Forms: [employer] (Icelandic), [facility] ED School/Work Excuse Results - Lab Results Lab Results: 04/22/18 04/22/18 18:15 18:15 WBC 6.2 RBC 3.99 Hgb 9.4 L D Hct 30.8 L MCV 77.1 L D MCH 23.7 L MCHC 30.7 L RDW 17.6 H Plt Count 258 MPV 8.7 Neut % (Auto) 41.3 L Lymph % (Auto) 47.7 H Rice % (Auto) 8.8 Eos % (Auto) 1.6 Baso % (Auto) 0.6 Neut # (Auto) 2.6 Lymph # (Auto) 3.0 Rice # (Auto) 0.5 Eos # (Auto) 0.1 Baso # (Auto) 0.0 Sodium 138 Potassium 4.3 Chloride 109 H Carbon Dioxide 24 Anion Gap 9 L BUN 20 H Creatinine 0.7 Est GFR ( Amer) > 60 Est GFR (Non-Af Amer) > 60 Random Glucose 82 Calcium 8.4 Total Bilirubin < 0.1 L AST 23 ALT 25 Alkaline Phosphatase 40 Total Protein 6.5 Albumin 3.4 L Globulin 3.1 Albumin/Globulin Ratio 1.1
[2018-04-22] MEDS ORDERED: Sodium Chloride 0.9% 1,000 ML IV STA (17:07)
[2018-04-22 18:44] LABS: ALB/GLOB RATIO 1.1 (1.0-2.1); ALBUMIN 3.4 g/dL (3.5-5.0); ALT/SGPT 25 U/L (9-52); AST/SGOT 23 U/L (14-36); BLOOD UREA NITROGEN 20 mg/dl (7-17); CALCIUM 8.4 mg/dL (8.4-10.2); GFR NON-AFRICAN AMERICAN > 60
[2018-04-22 19:07] LABS: BASO % 0.6 % (0.0-2.0); EOS # 0.1 K/uL (0.0-0.7); EOS % 1.6 % (0.0-4.0); HEMOGLOBIN 9.4 g/dL (12.0-16.0); LYMPH % 47.7 % (20.0-40.0); MEAN CELL VOLUME 77.1 fl (81.0-99.0); MEAN CORPUSCULAR HEMOGLOBIN 23.7 pg (27.0-31.0); MEAN CORPUSCULAR HGB CONC 30.7 g/dL (33.0-37.0); MEAN PLATELET VOLUME 8.7 fl (7.2-11.7); MONO # 0.5 K/uL (0.0-0.8); MONO % 8.8 % (0.0-10.0); NEUT # 2.6 K/uL (1.8-7.0); NEUT % 41.3 % (50.0-75.0); RBC 3.99 Mil/uL (3.80-5.20); RED CELL DISTRIBUTION WIDTH 17.6 % (11.5-14.5); WHITE BLOOD COUNT 6.2 K/uL (4.8-10.8)
[2018-04-22 19:52] VITALS: BP 118/72; PULSE 72
== END 2018-04-22 19:51 | disposition home or self-care (01) ==
LOC: H.ER 15:08
DX: H66.93 Otitis media, unspecified, bilateral (principal); R42 Dizziness and giddiness; D64.9 Anemia, unspecified; F32.9 Major depressive disorder, single episode, unspecified; F41.9 Anxiety disorder, unspecified; I10 Essential (primary) hypertension
CPT/HCPCS: 80053; 85025; 96374; 96375; 99284; J1885; J2405; J7030

== ENCOUNTER 2018-09-20 16:17 | Emergency (ER) | payer MEDICAID ==
[2018-09-20 16:34] VITALS: RESP 16
[2018-09-20] MEDS ORDERED: Sodium Chloride 0.9% 1,000 ML IV STA (18:21)
--- NOTE | 2018-09-20 18:43 | ED PDOC ---
HPI: Abdomen Time Seen by Provider: 09/20/18 18:20 Chief Complaint (Nursing): Abdominal Pain Chief Complaint (Provider): Abdominal pain History Per: Patient History/Exam Limitations: no limitations Onset/Duration Of Symptoms: Days Outside of [place] travel?: No Current Symptoms Are (Timing): Still Present Location Of Pain/Discomfort: Diffuse Associated Symptoms: Diarrhea. denies: Fever, Chills, Urinary Symptoms Additional Complaint(s): 48yo female, otherwise well, comes to ER reporting diffuse upper abdominal pain, present intermittently x 2 weeks. She also reports episodes of diarrhea as well as malaise. She denies any fever, chills, vomiting or urinary symptoms. Past Medical History Reviewed: Historical Data, Nursing Documentation, Vital Signs Vital Signs: Last Vital Signs Temp 98.3 F 09/20/18 16:34 Pulse 68 09/20/18 16:34 Resp 16 09/20/18 16:34 BP 109/65 09/20/18 16:34 Pulse Ox 99 09/20/18 16:34 Primary Care Provider: Non [facility] Provider, - Medical History PMH: Anxiety, Depression, HTN (lifestyle modifications) - Surgical History Surgical History: Appendectomy, Endoscopy, Hernia Repair - Family History Family History: States: Unknown Family Hx - Home Medications Home Medications: Ambulatory Orders Medication Instructions Recorded Citalopram Hydrobromide [Celexa] 40 mg PO DAILY #60 12/25/16 LORazepam [Ativan] 0.5 mg PO HS PRN #7 tab 12/25/16 buPROPion [Wellbutrin] 100 mg PO TID #90 tab 12/25/16 oxyCODONE/Acetaminophen [Percocet 1 ea PO QID #10 tab 10/12/17 5/325 mg Tab] Amoxicillin/Clavulanate [Augmentin 1 tab PO BID #14 tab 04/22/18 875 MG-125 MG] Meclizine [Meclizine*] 25 mg PO Q6 PRN #40 tab 04/22/18 Ondansetron ODT [Zofran ODT] 4 mg PO Q8H PRN #20 odt 04/22/18 predniSONE [Prednisone] 20 mg PO BID #10 tab 04/22/18 Ondansetron [Zofran] 4 mg PO Q8H PRN #5 tab 09/21/18 - Allergies Allergies/Adverse Reactions: Allergies Allergy/AdvReac Type Severity Reaction Status Date / Time No Known Allergies Allergy Verified 09/20/18 16:34 Review of Systems ROS Statement: Except As Marked, All Systems Reviewed And Found Negative Constitutional: Positive for: Malaise. Negative for: Fever, Chills Gastrointestinal: Positive for: Abdominal Pain, Diarrhea. Negative for: Nausea, Vomiting Physical Exam - Reviewed Nursing Documentation Reviewed: Yes Vital Signs Reviewed: Yes - Physical Exam Appears: Positive for: Non-toxic, No Acute Distress Head Exam: Positive for: ATRAUMATIC, NORMAL INSPECTION, NORMOCEPHALIC Skin: Positive for: Normal Color Eye Exam: Positive for: Normal appearance Neck: Positive for: Supple Cardiovascular/Chest: Positive for: Regular Rate, Rhythm. Negative for: Tachycardia Respiratory: Positive for: Normal Breath Sounds. Negative for: Respiratory Distress Gastrointestinal/Abdominal: Positive for: Soft, Distended Back: Positive for: Normal Inspection Extremity: Positive for: Normal ROM Neurological/Psych: Positive for: Awake, Alert, Normal Tone - Laboratory Results Result Diagrams: 09/20/18 19:26 09/20/18 19:26 - ECG O2 Sat by Pulse Oximetry: 99 (RA) Pulse Ox Interpretation: Normal Medical Decision Making Medical Decision Making: Workup for abdominal pain, present x 2 weeks with intermittent diarrhea Plan: -- Labs -- CT Abdomen/pelvis -- Urinalysis -- Zofran 4mg IV -- Toradol 15mg IV -- IV Fluids 1850 Patient signed out to Dr. Ibarra pending labs, CT results and ER disposition Scribe Attestation: Documented by Zehra Wadsworth acting as a scribe for Trang Webb MD. Provider Scribe Attestation: All medical record entries made by the Scribe were at my direction and personally dictated by me. I have reviewed the chart and agree that the record accurately reflects my personal performance of the history, physical exam, medical decision making, and the department course for this patient. I have also personally directed, reviewed, and agree with the discharge instructions and disposition. Disposition - Clinical Impression Clinical Impression: Ileus - Disposition Disposition: Transfer of Care Disposition Time: 18:50 (signed out to Dr. Ibarra) Condition: STABLE Additional Instructions: follow up with your primary doctor at [facility] in 1-2 days return to the ED with any worsening or concerning symptoms Prescriptions: Ondansetron [Zofran] 4 mg PO Q8H PRN #5 tab PRN Reason: Nausea/Vomiting Forms: [facility] (Peruvian)
[2018-09-20] MEDS ORDERED: Iohexol 240 (50 ml) PO ONE (18:49)
[2018-09-20] MEDS ORDERED: Iohexol 240 (50 ml) ONE (19:04)
--- NOTE | 2018-09-20 19:27 | ED PDOC ---
- Laboratory Results Result Diagrams: 09/20/18 19:26 09/20/18 19:26 - ECG O2 Sat by Pulse Oximetry: 99 (RA) Pulse Ox Interpretation: Normal Medical Decision Making Medical Decision Makin Patient signed out to me by Dr. Webb pending labs, CT, reassessment Scribe Attestation: Documented by Zehra Wadsworth acting as a scribe for Klaus Ibarra MD. Provider Scribe Attestation: All medical record entries made by the Scribe were at my direction and personally dictated by me. I have reviewed the chart and agree that the record accurately reflects my personal performance of the history, physical exam, medical decision making, and the department course for this patient. I have also personally directed, reviewed, and agree with the discharge instructions and disposition. CT SCAN OF THE ABDOMEN AND PELVIS WITH CONTRAST. CLINICAL HISTORY: Abdominal pain. TECHNIQUE: Multiple axial and coronal CT images were obtained through the abdomen and pelvis after administration of intravenous contrast material. COMPARISON: 12/25/2015 04:56 AM EDT: CT\SD: ABD PELVIS PO IV CONTRAST. COMMENTS: Moderate amount of fecal residue in the large bowels. Uncomplicated colonic diverticulosis. Changes from prior gastric bypass surgery. Fluid-filled gastric remnant, probably mild gastroparesis. Fluid-filled mildly dilated small bowel loops in the left upper quadrant. This is identified proximal to the level of the surgical anastomosis. Mild focal ileu s but a developing/low grade partial bowel obstruction. No evidence of perforation or pneumatosis intestinalis. Oral contrast is identified at the level of the ileum/distal ileal small bowel loops in the proximal colon. Moderate amount of fecal residue is noted in the large bowels. Supraumbilical anterior abdominal wall hernia is noted containing nonincarcerated segment of the transverse colon. Mild diffuse spondylosis. The liver is of uniform attenuation without mass or defect. There is no intra or extrahepatic biliary ductal dilatation. The spleen is normal. The gallbladder is within normal limits. The pancreas is of normal contour and attenuation characteristics. There is no evidence of adrenal mass. Both kidneys demonstrate prompt and equal nephrograms. The kidneys are normal in size, shape and configuration. There is no evidence of renal or ureteral mass. No renal or ureteral calculi are identified. There is no hydroureter or hydronephrosis. No evidence for appendicitis. There is no bowel wall thickening. There is no evidence of abdominal ascites or lymphadenopathy. There is no evidence of intrinsic or extrinsic bladder mass. There is no pelvic ascites or lymphadenopathy. Images of the lung bases show no evidence of pleural or parenchymal mass. There are no pleural effusions. The bony structures are free of lytic or blastic lesions. IMPRESSION: Moderate amount of fecal residue in the large bowels. Uncomplicated colonic diverticulosis. Changes from prior gastric bypass surgery. Fluid-filled gastric remnant, probably mild gastroparesis. Fluid-filled mildly dilated small bowel loops in the left upper quadrant. This is identified proximal to the level of the surgical anastomosis. Mild focal ileus but a developing/low grade partial bowel obstruction. No evidence of perforation or pneumatosis intestinalis. Oral contrast is identified at the level of the ileum/distal ileal small bowel loops in the proximal colon. Moderate amount of fecal residue is noted in the large bowels. Supraumbilical anterior abdominal wall hernia is noted containing nonincarcerated segment of the transverse colon. Mild diffuse spondylosis. Thank you for your kind referral of this patient. Electronically signed on September 21, 2018 12:43:53 AM EDT by: Marybeth Gomez M.D., Certified by ABR, MSK, Neuroradiology Discussed results by phone with above radiologist who states pt has ileus and NOT sbo. informed pt of results pt currently resting in bed in NAD. tolerated po in the Ed. will treat with symptomatic treat at home- encouraged plenty of f luids, zofran prn nausea and outpt follow up with [place] pmd. Disposition Counseled Patient/Family Regarding: Studies Performed, Diagnosis, Need For Followup - Clinical Impression Clinical Impression: Ileus - POA Present On Arrival: None - Disposition Disposition: Routine/Home Disposition Time: 12:45 Condition: IMPROVED Additional Instructions: follow up with your primary doctor at [place] in 1-2 days return to the ED with any worsening or concerning symptoms Prescriptions: Ondansetron [Zofran] 4 mg PO Q8H PRN #5 tab PRN Reason: Nausea/Vomiting Forms: [facility] (Serbian)
[2018-09-20 19:32] LABS: BASO # 0.1 K/uL (0.0-0.2); BASO % 0.6 % (0.0-2.0); EOS # 0.1 K/uL (0.0-0.7); EOS % 1.4 % (0.0-4.0); HEMOGLOBIN 11.2 g/dL (12.0-16.0); LYMPH # 2.3 K/uL (1.0-4.3); MEAN CELL VOLUME 79.8 fl (81.0-99.0); MEAN CORPUSCULAR HEMOGLOBIN 25.4 pg (27.0-31.0); MEAN CORPUSCULAR HGB CONC 31.8 g/dL (33.0-37.0); MEAN PLATELET VOLUME 8.4 fl (7.2-11.7); MONO # 0.9 K/uL (0.0-0.8); MONO % 9.7 % (0.0-10.0); NEUT # 5.9 K/uL (1.8-7.0); NEUT % 63.3 % (50.0-75.0); NRBC % 0.1 % (0.0-0.0); RBC 4.43 Mil/uL (3.80-5.20); RED CELL DISTRIBUTION WIDTH 24.2 % (11.5-14.5); WHITE BLOOD COUNT 9.3 K/uL (4.8-10.8)
[2018-09-20 19:35] LABS: SQUAMOUS EPITHIAL 3 /hpf (0-5); URINE BACTERIA RARE (<OCC); URINE BILIRUBIN NEGATIVE (NEGATIVE); URINE BLOOD NEGATIVE (NEGATIVE); URINE CLARITY SLIGHTY-CLOUDY (Clear); URINE COLOR YELLOW (YELLOW); URINE GLUCOSE (UA) NEG (NEGATIVE); URINE LEUKOCYTE ESTERASE TRACE Leu/uL (Negative); URINE PROTEIN NEGATIVE (NEGATIVE); URINE UROBILINOGEN 0.2-1.0 mg/dL (0.2-1.0)
[2018-09-20 19:39] LABS: ALB/GLOB RATIO 1.3 (1.0-2.1); ALT/SGPT 24 U/L (9-52); AST/SGOT 24 U/L (14-36); BLOOD UREA NITROGEN 20 mg/dl (7-17); CALCIUM 8.9 mg/dL (8.4-10.2); GFR NON-AFRICAN AMERICAN > 60
[2018-09-20] MEDS ORDERED: Iohexol 300 100 ML IJ ONE (22:30)
[2018-09-20] MEDS ORDERED: Sodium Chloride 0.9% 50 ML IV ONE (22:30)
[2018-09-21] MEDS ORDERED: Sodium Chloride 0.9% 1,000 ML IV STA (02:30)
[2018-09-21 04:00] VITALS: BP 118/68; PULSE 62; TEMP 98
[2018-09-21 04:27] VITALS: O2SAT 99
--- NOTE | 2018-09-21 11:05 | CT ---
Date of service: 09/20/2018 PROCEDURE: CT Abdomen and Pelvis with contrast HISTORY: diffuse abd pain, history of obstruction COMPARISON: 11/22/2011, 12/25/2015. Serial CT scans abdomen and pelvis. Summary of findings on the comparison examination: High-grade proximal small bowel obstruction secondary to jejunojejunal intussusception at or near surgical anastomosis. TECHNIQUE: Intravenous contrast dose: 95 cc Omnipaque 300. Radiation dose: Total exam DLP = 79.63 mGy-cm. This CT exam was performed using one or more of the following dose reduction techniques: Automated exposure control, adjustment of the mA and/or kV according to patient size, and/or use of iterative reconstruction technique. FINDINGS: LOWER THORAX: Postoperative changes gastroesophageal junction. LIVER: Unremarkable. No gross lesion or ductal dilatation. GALLBLADDER AND BILE DUCTS: Unremarkable. PANCREAS: Unremarkable. No gross lesion or ductal dilatation. SPLEEN: Unremarkable. ADRENALS: Unremarkable. No mass. KIDNEYS AND URETERS: Unremarkable. No hydronephrosis. No solid mass. VASCULATURE: Unremarkable. No aortic aneurysm. No atherosclerotic calcification or mural plaque present. BOWEL: Unremarkable. No obstruction. No gross mural thickening. Postoperative changes related proximal small bowel resection. Anterior abdominal wall diastasis resulting in an anterior abdominal wall hernia containing nonobstructed transverse colon. APPENDIX: No abnormalities to suggest acute appendicitis. No right lower quadrant inflammatory processes identified. PERITONEUM: Unremarkable. No free fluid. No free air. LYMPH NODES: Unremarkable. No enlarged lymph nodes. BLADDER: Unremarkable. REPRODUCTIVE: Unremarkable. BONES: No acute fracture. OTHER FINDINGS: None. IMPRESSION: Periumbilical hernia containing transverse colon. No evidence of obstruction or incarceration. Postoperative changes gastroesophageal junction and proximal small bowel. Concordant results (preliminary interpretation) provided by Dr. Jerry's [facility] [facility]. Procedure Completed: 22:44. Preliminary Report: Interpreted and electronically signed: 02:30. Final Interpretation: 11:01. September 21, 2018.
== END 2018-09-21 03:58 | disposition home or self-care (01) ==
LOC: H.ER 16:17
DX: K56.7 Ileus, unspecified (principal); I10 Essential (primary) hypertension; Z86.59 Personal history of other mental and behavioral disorders; Z98.84 Bariatric surgery status
CPT/HCPCS: 74177; 80053; 81003; 81025; 82803; 85025; 96374; 96375; 96376; 99284; J1885; J2405; J7030; Q9966; Q9967